=== PATIENT | female | born 1955 | race Two or more races ===

== ENCOUNTER 2022-10-12 23:31 | Inpatient (IN) | payer OTHER, MEDICAID ==
[~2022-10-12] VITALS: Ht 162.6 cm; Wt 59.4 kg
[2022-10-13] MEDS ORDERED: ALBUTEROL SULF 2.5 MG/0.5ML(0.5%) NEB SOLN NEB ONE ×2 (00:15→04:45)
[2022-10-13] MEDS ORDERED: IPRATROPIUM BROM 0.5 MG/2.5ML INH SOL NEB ONE ×2 (00:15→04:45)
[2022-10-13] MEDS ORDERED: methylPREDNISolone SOD SUCC 125 MG/2 ML VL IV ONE (00:15)
[2022-10-13 00:17] LABS: Basophils # (auto) 0 10 ^3/uL (0-0.2); Basophils % (auto) 0.2 % (0.0-2.0); Eosinophils # (auto) 0.2 10 ^3/uL (0-0.8); Eosinophils % (auto) 1.1 % (0.0-7.0); Hematocrit 26.4 % (36.0-46.0); Hemoglobin 8.5 g/dL (12.2-16.2); Lymphocytes % (auto) 6.8 % (10.0-50.0); Mean Corpuscular Hemoglobin 27.6 pg (28.0-32.0); Mean Corpuscular Hgb Conc. 32.1 g/dL (32.0-36.0); Mean Corpuscular Volume 85.9 fL (80.0-100.0); Monocytes # (auto) 0.6 10 ^3/uL (0-1.3); Monocytes % (auto) 4.1 % (0.0-12.0); Neutrophils # (auto) 12.8 10 ^3/uL (1.6-8.6); Neutrophils % (auto) 87.8 % (37.0-80.0); Red Blood Cells 3.07 10^6/uL (4.0-5.20); Red Cell Distribution Width 17.4 % (11.8-14.3); White Blood Cell 14.6 10^3/uL (4.4-10.8)
[2022-10-13 00:32] LABS: Albumin 2.5 g/dL (3.4-5.0); BUN/Creatinine Ratio 16.2; Calcium 8.7 mg/dL (8.5-10.1); Magnesium 1.9 mg/dL (1.6-2.6); Potassium 4.6 mmol/L (3.5-5.1)
[2022-10-13 00:34] LABS: Bilirubin, Total 1.2 mg/dL (0.2-1.0); Total Protein 6.8 g/dL (6.4-8.2)
[2022-10-13] MEDS ORDERED: ALPRAZolam 0.5 MG TAB PO ONE (01:00)
[2022-10-13 01:01] LABS: INR 1.25 (0.9-1.15); Partial Thromboplastin Time 25.5 sec (24.6-33.4)
[2022-10-13] MEDS ORDERED: ACETAMINOPHEN/CODEINE#3 (300/30mg) TAB PO ONE (02:15)
[2022-10-13] MEDS ORDERED: cefTRIAXone 1GM/50ML D5W 50 ML IV ONE (02:45)
[2022-10-13] MEDS ORDERED: AZITHROMYCIN 250 MG TAB PO ONE (02:45)
[2022-10-13] MEDS ORDERED: dilTIAZem 25 MG/5 ML VIAL IV ONE ×2 (03:15→04:45)
[2022-10-13] MEDS ORDERED: ASPirin 81 mg TAB PO ONE (03:30)
[2022-10-13] MEDS ORDERED: NITROGLYCERIN 0.4 MG SL TAB SL PRN (05:00)
[2022-10-13] MEDS ORDERED: MORPHINE SULFATE INJ 2 MG/ml SYRG IV PRN (05:00)
[2022-10-13] MEDS ORDERED: ATENOLOL 50 MG TAB PO ONE (05:00)
[2022-10-13] MEDS ORDERED: ACETAMINOPHEN 325 MG TAB PO PRN (05:00)
[2022-10-13] MEDS: dilTIAZem 125mg/125ml BAG KIT 125 ML IV ONE (05:19)
[2022-10-13] MEDS: TEMAZEPAM 15 MG CAP PO PRN (05:26)
[2022-10-13 06:49] LABS: Lactic Acid w/Reflex 2.6 mmol/L (0.4-2.0)
[2022-10-13] MEDS ORDERED: AMIODARONE HCL 200 MG TAB PO ONE (07:15)
[2022-10-13] MEDS: LEVOTHYROXINE SODIUM 25 MCG TAB PO SCH (07:37)
[2022-10-13 08:17] VITALS: BP 124/98
[2022-10-13] MEDS: AMIODARONE HCL 200 MG TAB PO SCH (09:26)
[2022-10-13] MEDS: methylPREDNISolone SOD SUCC 40 MG/ML VL IV SCH (09:42)
[2022-10-13] MEDS: amLODIPine BESYLATE 5 MG TAB PO SCH (09:43)
[2022-10-13] MEDS: ZINC SULFATE 220mg CAP or TAB PO SCH (09:43)
[2022-10-13] MEDS: FUROSEMIDE 40 MG TAB PO SCH (09:44)
[2022-10-13] MEDS: ASCORBIC ACID 500 MG TAB PO SCH (09:44)
[2022-10-13] MEDS: APIXABAN 5 MG TAB PO SCH (09:45)
[2022-10-13] MEDS ORDERED: PANTOPRAZOLE 40 MG TAB PO SCH (10:00)
[2022-10-13] MEDS ORDERED: ALBUTEROL SULF 2.5 MG/0.5ML(0.5%) NEB SOLN NEB PRN (10:45)
[2022-10-13] MEDS: ALBUTEROL SULF 2.5 MG/0.5ML(0.5%) NEB SOLN NEB PRN ×2 (10:56→16:48)
[2022-10-13] MEDS: HYDROcodone-ACET 5/325MG TAB PO PRN (15:51)
[2022-10-13] MEDS: IPRATROPIUM BROM 0.5 MG/2.5ML INH SOL NEB PRN (16:48)
[2022-10-13] MEDS: ONDANSETRON HCL 4 MG/2 ML VIAL IV PRN (18:41)
[2022-10-14] MEDS: ASCORBIC ACID 500 MG TAB PO SCH ×3 (00:29→21:42)
[2022-10-14] MEDS: cefTRIAXone 1GM/50ML D5W 50 ML IV SCH ×2 (00:29→20:36)
[2022-10-14] MEDS: ATORVASTATIN 20 MG TAB PO SCH ×2 (00:29→21:42)
[2022-10-14] MEDS: AMIODARONE HCL 200 MG TAB PO SCH ×3 (00:30→21:43)
[2022-10-14] MEDS: APIXABAN 5 MG TAB PO SCH ×3 (00:30→21:42)
[2022-10-14] MEDS: methylPREDNISolone SOD SUCC 40 MG/ML VL IV SCH ×3 (00:31→21:43)
[2022-10-14] MEDS: AZITHROMYCIN 500MG/ 250ML 250 ML IV SCH ×2 (01:26→21:39)
[2022-10-14] MEDS: IPRATROPIUM BROM 0.5 MG/2.5ML INH SOL NEB PRN (02:39)
[2022-10-14] MEDS: ALBUTEROL SULF 2.5 MG/0.5ML(0.5%) NEB SOLN NEB PRN (02:39)
[2022-10-14 04:50] LABS: Urine Bacteria FEW /hpf (None Seen); Urine Blood Negative /uL (Negative); Urine Hyaline Cast MOD /lpf (0 - 2); Urine Mucus FEW (None Seen); Urine Specific Gravity 1.015 (1.001-1.035); Urine WBC 9 /hpf (0 - 5)
[2022-10-14 05:59] LABS: Basophils # (auto) 0 10 ^3/uL (0-0.2); Basophils % (auto) 0.1 % (0.0-2.0); Eosinophils # (auto) 0 10 ^3/uL (0-0.8); Hemoglobin 8.6 g/dL (12.2-16.2); Lymphocytes # (auto) 0.7 10 ^3/uL (0.4-5.4); Monocytes # (auto) 0.5 10 ^3/uL (0-1.3); Neutrophils % (auto) 93.4 % (37.0-80.0); Nucleated Red Blood Cells % 0.1 %
[2022-10-14 06:03] LABS: Eosinophils % (auto) 0.1 % (0.0-7.0); Hematocrit 26.4 % (36.0-46.0); Lymphocytes % (auto) 3.7 % (10.0-50.0); Mean Corpuscular Hemoglobin 26.2 pg (28.0-32.0); Mean Corpuscular Hgb Conc. 32.5 g/dL (32.0-36.0); Mean Corpuscular Volume 80.5 fL (80.0-100.0); Monocytes % (auto) 2.7 % (0.0-12.0); Neutrophils # (auto) 16.4 10 ^3/uL (1.6-8.6); Red Blood Cells 3.28 10^6/uL (4.0-5.20); Red Cell Distribution Width 16.9 % (11.8-14.3); White Blood Cell 17.6 10^3/uL (4.4-10.8)
[2022-10-14] MEDS: LEVOTHYROXINE SODIUM 25 MCG TAB PO SCH (06:14)
[2022-10-14 06:33] VITALS: BP 128/74
[2022-10-14 07:32] LABS: Potassium 5.5 mmol/L (3.5-5.1)
[2022-10-14 07:33] LABS: Albumin 2.7 g/dL (3.4-5.0); BUN/Creatinine Ratio 24.8; Calcium 8.4 mg/dL (8.5-10.1); Total Protein 6.5 g/dL (6.4-8.2)
[2022-10-14 09:00] VITALS: BP 111/89
[2022-10-14] MEDS: FUROSEMIDE 40 MG TAB PO SCH (10:14)
[2022-10-14] MEDS: ZINC SULFATE 220mg CAP or TAB PO SCH (10:14)
[2022-10-14] MEDS: amLODIPine BESYLATE 5 MG TAB PO SCH (10:14)
[2022-10-14] MEDS: ATENOLOL 50 MG TAB PO SCH (10:15)
[2022-10-14 13:00] VITALS: BP 140/93
[2022-10-14 16:46] VITALS: BP 133/90
[2022-10-14] MEDS: HYDROcodone-ACET 5/325MG TAB PO PRN (17:56)
[2022-10-14] MEDS: TEMAZEPAM 15 MG CAP PO PRN (21:42)
[2022-10-14 22:00] VITALS: BP 109/86
[2022-10-15] MEDS: ALBUTEROL SULF 2.5 MG/0.5ML(0.5%) NEB SOLN NEB PRN ×2 (00:41→07:21)
[2022-10-15] MEDS: IPRATROPIUM BROM 0.5 MG/2.5ML INH SOL NEB PRN ×2 (00:42→07:21)
[2022-10-15 05:00] VITALS: BP 142/89
[2022-10-15] MEDS: LEVOTHYROXINE SODIUM 25 MCG TAB PO SCH (06:15)
[2022-10-15 09:00] VITALS: BP 133/81
[2022-10-15] MEDS: ZINC SULFATE 220mg CAP or TAB PO SCH (10:01)
[2022-10-15] MEDS: AMIODARONE HCL 200 MG TAB PO SCH ×2 (10:01→21:00)
[2022-10-15] MEDS: methylPREDNISolone SOD SUCC 40 MG/ML VL IV SCH ×2 (10:01→20:59)
[2022-10-15] MEDS: FUROSEMIDE 40 MG TAB PO SCH (10:02)
[2022-10-15] MEDS: ASCORBIC ACID 500 MG TAB PO SCH ×2 (10:02→20:59)
[2022-10-15] MEDS: ATENOLOL 50 MG TAB PO SCH (10:02)
[2022-10-15] MEDS: amLODIPine BESYLATE 5 MG TAB PO SCH (10:02)
[2022-10-15] MEDS: APIXABAN 5 MG TAB PO SCH ×2 (10:02→20:59)
[2022-10-15 13:00] VITALS: BP 134/101
[2022-10-15 17:00] VITALS: BP 125/96
[2022-10-15] MEDS: HYDROcodone-ACET 5/325MG TAB PO PRN (17:15)
[2022-10-15] MEDS: AZITHROMYCIN 500MG/ 250ML 250 ML IV SCH (20:58)
[2022-10-15] MEDS: cefTRIAXone 1GM/50ML D5W 50 ML IV SCH (20:58)
[2022-10-15] MEDS: ATORVASTATIN 20 MG TAB PO SCH (20:59)
[2022-10-15] MEDS: TEMAZEPAM 15 MG CAP PO PRN (21:16)
[2022-10-15] MEDS: ONDANSETRON HCL 4 MG/2 ML VIAL IV PRN (21:16)
[2022-10-15 22:00] VITALS: BP 116/80
[2022-10-16 05:00] VITALS: BP 136/85
[2022-10-16] MEDS: LEVOTHYROXINE SODIUM 25 MCG TAB PO SCH (07:05)
[2022-10-16 07:44] VITALS: BP 136/85
[2022-10-16 09:00] VITALS: BP 135/77
[2022-10-16] MEDS: ZINC SULFATE 220mg CAP or TAB PO SCH (09:43)
[2022-10-16] MEDS: methylPREDNISolone SOD SUCC 40 MG/ML VL IV SCH ×2 (09:43→21:09)
[2022-10-16] MEDS: amLODIPine BESYLATE 5 MG TAB PO SCH (09:44)
[2022-10-16] MEDS: FUROSEMIDE 40 MG TAB PO SCH (09:44)
[2022-10-16] MEDS: APIXABAN 5 MG TAB PO SCH ×2 (09:44→21:10)
[2022-10-16] MEDS: AMIODARONE HCL 200 MG TAB PO SCH ×2 (09:44→21:10)
[2022-10-16] MEDS: ATENOLOL 50 MG TAB PO SCH (09:44)
[2022-10-16] MEDS: ASCORBIC ACID 500 MG TAB PO SCH ×2 (09:45→21:11)
[2022-10-16 13:00] VITALS: BP 138/79
[2022-10-16] MEDS: HYDROcodone-ACET 5/325MG TAB PO PRN (20:02)
[2022-10-16] MEDS: cefTRIAXone 1GM/50ML D5W 50 ML IV SCH (20:31)
[2022-10-16] MEDS: AZITHROMYCIN 500MG/ 250ML 250 ML IV SCH (21:09)
[2022-10-16] MEDS: ATORVASTATIN 20 MG TAB PO SCH (21:11)
[2022-10-16 22:00] VITALS: BP 126/75
[2022-10-16] MEDS: TEMAZEPAM 15 MG CAP PO PRN (22:36)
[2022-10-17] VITALS (7 sets, daily range): BP systolic 128–145; BP diastolic 61–88
[2022-10-17] MEDS: HYDROcodone-ACET 5/325MG TAB PO PRN ×2 (04:34→10:07)
[2022-10-17] MEDS: LEVOTHYROXINE SODIUM 25 MCG TAB PO SCH (06:24)
[2022-10-17] MEDS: APIXABAN 5 MG TAB PO SCH ×2 (09:59→23:18)
[2022-10-17] MEDS: ZINC SULFATE 220mg CAP or TAB PO SCH (09:59)
[2022-10-17] MEDS: AMIODARONE HCL 200 MG TAB PO SCH ×2 (09:59→23:18)
[2022-10-17] MEDS: amLODIPine BESYLATE 5 MG TAB PO SCH (09:59)
[2022-10-17] MEDS: FUROSEMIDE 40 MG TAB PO SCH (09:59)
[2022-10-17] MEDS: ASCORBIC ACID 500 MG TAB PO SCH ×2 (09:59→23:19)
[2022-10-17] MEDS: ATENOLOL 50 MG TAB PO SCH (10:00)
[2022-10-17] MEDS: methylPREDNISolone SOD SUCC 40 MG/ML VL IV SCH ×2 (10:00→23:17)
[2022-10-17] MEDS: AZITHROMYCIN 500MG/ 250ML 250 ML IV SCH (21:14)
[2022-10-17] MEDS: ATORVASTATIN 20 MG TAB PO SCH (23:18)
[2022-10-17] MEDS: cefTRIAXone 1GM/50ML D5W 50 ML IV SCH (23:20)
[2022-10-18] VITALS (7 sets, daily range): BP systolic 127–139; BP diastolic 80–94
[2022-10-18] MEDS: LEVOTHYROXINE SODIUM 25 MCG TAB PO SCH (06:13)
[2022-10-18] MEDS: methylPREDNISolone SOD SUCC 40 MG/ML VL IV SCH ×2 (09:27→22:32)
[2022-10-18] MEDS: amLODIPine BESYLATE 5 MG TAB PO SCH (09:28)
[2022-10-18] MEDS: ASCORBIC ACID 500 MG TAB PO SCH ×2 (09:28→22:32)
[2022-10-18] MEDS: ATENOLOL 50 MG TAB PO SCH (09:29)
[2022-10-18] MEDS: FUROSEMIDE 40 MG TAB PO SCH (09:29)
[2022-10-18] MEDS: HYDROcodone-ACET 5/325MG TAB PO PRN ×3 (09:29→22:32)
[2022-10-18] MEDS: ZINC SULFATE 220mg CAP or TAB PO SCH (09:29)
[2022-10-18] MEDS: AMIODARONE HCL 200 MG TAB PO SCH ×2 (09:30→22:33)
[2022-10-18] MEDS: APIXABAN 5 MG TAB PO SCH ×2 (09:30→22:33)
[2022-10-18] MEDS: cefTRIAXone 1GM/50ML D5W 50 ML IV SCH (20:50)
[2022-10-18] MEDS: AZITHROMYCIN 500MG/ 250ML 250 ML IV SCH (22:31)
[2022-10-18] MEDS: ATORVASTATIN 20 MG TAB PO SCH (22:33)
[2022-10-19] VITALS (7 sets, daily range): BP systolic 125–134; BP diastolic 63–96
[2022-10-19] MEDS: LEVOTHYROXINE SODIUM 25 MCG TAB PO SCH (06:02)
[2022-10-19] MEDS: ASCORBIC ACID 500 MG TAB PO SCH ×2 (09:51→21:02)
[2022-10-19] MEDS: ZINC SULFATE 220mg CAP or TAB PO SCH (09:51)
[2022-10-19] MEDS: amLODIPine BESYLATE 5 MG TAB PO SCH (09:52)
[2022-10-19] MEDS: APIXABAN 5 MG TAB PO SCH ×2 (09:52→21:02)
[2022-10-19] MEDS: AMIODARONE HCL 200 MG TAB PO SCH (09:52)
[2022-10-19] MEDS: FUROSEMIDE 40 MG TAB PO SCH (09:53)
[2022-10-19] MEDS: methylPREDNISolone SOD SUCC 40 MG/ML VL IV SCH (09:53)
[2022-10-19] MEDS: ATENOLOL 50 MG TAB PO SCH (09:53)
[2022-10-19] MEDS: HYDROcodone-ACET 5/325MG TAB PO PRN ×2 (09:54→23:01)
[2022-10-19] MEDS ORDERED: LACTULOSE 20Gm/30ML SOLN PO ONE (11:15)
[2022-10-19 12:15] LABS: Basophils # (auto) 0 10 ^3/uL (0-0.2); Basophils % (auto) 0.2 % (0.0-2.0); Eosinophils # (auto) 0 10 ^3/uL (0-0.8); Eosinophils % (auto) 0.1 % (0.0-7.0); Hematocrit 31.8 % (36.0-46.0); Hemoglobin 10.1 g/dL (12.2-16.2); Lymphocytes # (auto) 0.7 10 ^3/uL (0.4-5.4); Lymphocytes % (auto) 4.8 % (10.0-50.0); Mean Corpuscular Hemoglobin 24.7 pg (28.0-32.0); Mean Corpuscular Hgb Conc. 31.7 g/dL (32.0-36.0); Mean Corpuscular Volume 77.8 fL (80.0-100.0); Monocytes # (auto) 0.4 10 ^3/uL (0-1.3); Monocytes % (auto) 3.1 % (0.0-12.0); Neutrophils # (auto) 12.7 10 ^3/uL (1.6-8.6); Neutrophils % (auto) 91.8 % (37.0-80.0); Nucleated Red Blood Cells % 0.1 %; Red Blood Cells 4.09 10^6/uL (4.0-5.20); White Blood Cell 13.8 10^3/uL (4.4-10.8)
[2022-10-19 12:40] LABS: BUN/Creatinine Ratio 29.9; Calcium 8.8 mg/dL (8.5-10.1); Potassium 3.8 mmol/L (3.5-5.1)
[2022-10-19] MEDS ORDERED: SODIUM CHLORIDE 0.9% 1,000 ML IV ONE (14:15)
[2022-10-19] MEDS: cefTRIAXone 1GM/50ML D5W 50 ML IV SCH (20:56)
[2022-10-19] MEDS: ATORVASTATIN 20 MG TAB PO SCH (21:03)
[2022-10-19 22:17] LABS: Hepatitis C Antibody Negative (Negative)
[2022-10-20] MEDS: TEMAZEPAM 15 MG CAP PO PRN (01:50)
[2022-10-20 05:00] VITALS: BP_SYST 118; BP_SYST 159; BP_DIAS 107; BP_DIAS 82
[2022-10-20] MEDS: LEVOTHYROXINE SODIUM 25 MCG TAB PO SCH (06:08)
[2022-10-20] MEDS: ZINC SULFATE 220mg CAP or TAB PO SCH (08:54)
[2022-10-20] MEDS: APIXABAN 5 MG TAB PO SCH (08:55)
[2022-10-20] MEDS: ASCORBIC ACID 500 MG TAB PO SCH (08:55)
[2022-10-20] MEDS: amLODIPine BESYLATE 5 MG TAB PO SCH (08:56)
[2022-10-20] MEDS: ATENOLOL 50 MG TAB PO SCH (08:58)
[2022-10-20] MEDS: HYDROcodone-ACET 5/325MG TAB PO PRN ×2 (08:59→13:02)
[2022-10-20 09:00] VITALS: BP 131/59
[2022-10-20 11:43] LABS: Basophils # (auto) 0 10 ^3/uL (0-0.2); Eosinophils # (auto) 0.1 10 ^3/uL (0-0.8); Eosinophils % (auto) 1.1 % (0.0-7.0); Lymphocytes # (auto) 1.4 10 ^3/uL (0.4-5.4); Monocytes # (auto) 0.5 10 ^3/uL (0-1.3); Neutrophils # (auto) 9.5 10 ^3/uL (1.6-8.6); White Blood Cell 11.5 10^3/uL (4.4-10.8)
[2022-10-20 11:45] LABS: Basophils % (auto) 0.3 % (0.0-2.0); Hemoglobin 10.3 g/dL (12.2-16.2); Lymphocytes % (auto) 11.9 % (10.0-50.0); Mean Corpuscular Hemoglobin 25.4 pg (28.0-32.0); Mean Corpuscular Hgb Conc. 32.1 g/dL (32.0-36.0); Mean Corpuscular Volume 79.1 fL (80.0-100.0); Monocytes % (auto) 4.3 % (0.0-12.0); Neutrophils % (auto) 82.4 % (37.0-80.0); Red Blood Cells 4.04 10^6/uL (4.0-5.20)
[2022-10-20 12:00] LABS: BUN/Creatinine Ratio 27.7; Calcium 8.7 mg/dL (8.5-10.1); Potassium 3.3 mmol/L (3.5-5.1)
[2022-10-20] MEDS ORDERED: POTASSIUM EFFERVESENT TAB 25 MEQ PO ONE (12:15)
[2022-10-20 13:00] VITALS: BP 128/86
[2022-10-20] MEDS ORDERED: APIX5TAB PO (15:04)
[2022-10-20] MEDS ORDERED: AML5T PO (15:04)
[2022-10-20] MEDS ORDERED: ATE50T PO (15:04)
[2022-10-20 15:23] VITALS: BP 128/86
[2022-10-20 15:55] VITALS: BP 128/86
[2022-10-20] MEDS ORDERED: FUROSEMIDE 20 MG/2 ML VIAL IV SCH (18:00)
== END 2022-10-20 18:46 | disposition home or self-care (01) | DRG 871 ==
LOC: ER 23:31 → EDBD 23:31 → TELE 10-13 04:48 → TELE-WESTW 10-13 21:14
PROVIDERS: ADMIT Nurse Practitioner; ATTEND Student in an Organized Health Care Education/Training Program
DX: A41.9 Sepsis, unspecified organism (principal); J15.6 Pneumonia due to other Gram-negative bacteria; K62.5 Hemorrhage of anus and rectum; E87.1 Hypo-osmolality and hyponatremia; J44.0 Chronic obstructive pulmonary disease with (acute) lower respiratory infection; J44.1 Chronic obstructive pulmonary disease with (acute) exacerbation; K64.8 Other hemorrhoids; E03.9 Hypothyroidism, unspecified; I48.91 Unspecified atrial fibrillation; N18.9 Chronic kidney disease, unspecified; Z20.822 Contact with and (suspected) exposure to COVID-19; D64.9 Anemia, unspecified; E78.5 Hyperlipidemia, unspecified; F32.A Depression, unspecified; F41.9 Anxiety disorder, unspecified; I12.9 Hypertensive chronic kidney disease with stage 1 through stage 4 chronic kidney disease, or unspecified chronic kidney disease; Z87.891 Personal history of nicotine dependence
CPT/HCPCS: 36415; 71045; 80048; 80053; 81001; 83605; 83735; 83880; 84443; 84484; 85025; 85610; 85730; 86803; 87340; 87426; 93005; 93306; 94640; 96365; 96375; 96376; G0378; J0696; J2405